=== PATIENT | female | born 1970 | race Hispanic/Latino ===

== ENCOUNTER 2022-10-19 12:19 | Emergency (ER) | payer BC ==
[~2022-10-19] VITALS: Ht 167.6 cm; Wt 77.1 kg
[2022-10-19 12:22] VITALS: BP 169/99
[2022-10-19] MEDS ORDERED: KETOROLAC 15MG/ML VIAL (15MG/ML) IM ONE (13:00)
[2022-10-19] MEDS ORDERED: KETO10TA2 PO (13:28)
== END 2022-10-19 13:52 | disposition home or self-care (01) ==
LOC: EDH 12:19
DX: S40.021A Contusion of right upper arm, initial encounter (principal); I10 Essential (primary) hypertension; E78.00 Pure hypercholesterolemia, unspecified; Z90.49 Acquired absence of other specified parts of digestive tract; Z90.710 Acquired absence of both cervix and uterus; Y08.89XA Assault by other specified means, initial encounter; Y93.89 Activity, other specified; Y92.89 Other specified places as the place of occurrence of the external cause; Y99.8 Other external cause status
CPT/HCPCS: 99284; 73070; 73090; 96372; J1885